=== PATIENT | male | born 1970 | race Caucasian/White ===

== ENCOUNTER → 2020-03-13 09:06 | Outpatient (CLI) | payer OTHER ==
[2020-03-13 09:49] LABS: BILIRUBIN - TOTAL 1.22 mg/dL (0.2-1.3)
[2020-03-13 10:33] LABS: INR 1.31 (0.85-1.17); PROTIME 16.2 SECONDS (11.6-15.0)
== END | disposition home or self-care (01) ==
LOC: D.LAB 09:06
PROVIDERS: ATTEND Pediatrics
DX: Z02.71 Encounter for disability determination (principal)